=== PATIENT | male | born 1975 | race Caucasian/White ===

== ENCOUNTER 2018-04-30 09:43 | Emergency (ER) | payer SELFPAY ==
[~2018-04-30] VITALS: Ht 177.8 cm; Wt 81.6 kg
[2018-04-30 10:24] VITALS: BP 126/70
--- NOTE | 2018-04-30 10:40 | PHYS DOC ---
Past Medical History Past Medical History: No Pertinent History Past Surgical History: No Surgical History Alcohol Use: None Drug Use: None Adult General Chief Complaint Chief Complaint: UPPER EXTREMITY PAIN HPI HPI Patient presents to the emergency department for evaluation of left shoulder area pain. 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 He denies any definite or discrete injury. He denies any headache, or vision changes. Denies any lower extremity injury or definite neck pain. Movement and palpation of his left shoulder seemed to worsen his pain. There are no alleviating factors to his symptoms, except as noted above. The patient's symptoms have been present for several months. Review of Systems Review of Systems Constitutional: Denies fever or chills [] Eyes: Denies change in visual acuity, redness, or eye pain [] HENT: Denies nasal congestion or sore throat [] Respiratory: Denies cough or shortness of breath [] Cardiovascular: The patient denies any shortness of breath, chest pain, palpitations, or orthopnea [] GI: Denies abdominal pain, nausea, vomiting, bloody stools or diarrhea [] : Denies dysuria or hematuria [] Musculoskeletal: Denies back pain or joint pain except as noted in the history of present illness [] Integument: Denies rash or skin lesions [] Neurologic: Denies headache, focal weakness or sensory changes, except as noted in the history of present illness. [] Endocrine: Denies polyuria or polydipsia [] All other systems were reviewed and found to be within normal limits, except as documented in this note. Allergies Allergies Allergies Coded Allergies Type Severity Reaction Last Updated Verified No Known Drug Allergies 04/30/18 No Physical Exam Physical Exam PHYSICAL EXAM: CONSTITUTIONAL: Well developed, well nourished HEAD: normocephalic, atraumatic EENT: PERRL, EOMI. Conjunctivae normal color, sclerae non-icteric; moist mucous membranes. NECK: Supple, no meningismus. There is tenderness to palpation at the base of the cervical spine, which does not directly reproduce the patient's pain. LUNGS: Lungs CTA, breathing even and unlabored. Normal air movement. HEART: Regular rate and rhythm, no murmur CHEST: No deformity; non-tender ABDOMEN: The abdomen is soft, and non-tender, no masses or bruits. EXTREM: There is diffuse tenderness to palpation of the left shoulder, which does reproduce the patient's pain. There is no significant deformity noted, no warmth or erythema. Injure motion left shoulder is limited to approximately 70% and internal Rotation secondary to pain, and abduction is normal. There is a strong radial pulse. Normal ROM; no deformity, no calf tenderness. Normal pulses palpable in all extremities. There is no pedal edema. SKIN: No rash; no diaphoresis NEURO: Alert; normal speech and cognition; CN's grossly intact; there is mild childcare center administrator strength deficit of the left hand compared to the right, although the patient is able to fully flex and extend his digits. Strength grossly intact without focal deficit. There is subjective decreased pinprick sensation to the left upper extremity compared to the right. BACK: No CVA TTP. Current Patient Data Vital Signs Vital Signs Date Time Temp Pulse Resp B/P (MAP) Pulse Ox O2 Delivery O2 Flow Rate FiO2 04/30/18 10:24 97.6 80 16 126/70 (88) 100 Room Air 97.6 EKG EKG [] Radiology/Procedures Radiology/Procedures [PROCEDURE: CERVICAL SPINE 2-3V 3 view cervical spine dated 04/30/2018. No comparison available. Clinical data indication: Pain and decreased range of motion for 3 months. No known injury. FINDINGS: AP, lateral and odontoid views were obtained. Straightening of the normal cervical lordosis, otherwise sagittal alignment is anatomic. Vertebral body heights are maintained. Mild hypertrophic change of the superior and inferior endplates throughout. There is mild disc space narrowing at C6-C7 with mild multilevel uncovertebral spurring. C1-C2 articulation unremarkable. IMPRESSION: 1. No acute radiographic abnormality. 2. Mild multilevel spondylosis. ] PROCEDURE: SHOULDER 2+V LEFT Three-view left shoulder dated 04/30/2018. No comparison available. Clinical indication: Pain and decreased range of motion. FINDINGS: 3 views left shoulder show normal bony alignment. No displaced fracture. No acute osseous or articular abnormality. Mild hypertrophic change of the AC joint. IMPRESSION: No acute findings. Course & Med Decision Making Course & Med Decision Making Pertinent Imaging studies reviewed. (See chart for details) 11:50 AM: The patient's condition remains stable. I discussed the use of NSAIDs , heat applied to the affected area, limiting strenuous activity with the affected arm, and need for further outpatient evaluation by orthopedic surgery, and return precautions. The patient's pain is located primarily in his shoulder , raising the possibility that his symptoms are due to a rotator cuff issue. However, cervical radiculopathy is also the differential the patient would likely benefit from an MRI of both the shoulder and cervical spine as an outpatient.. This was discussed in detail with the patient. Dragon Disclaimer Dragon Disclaimer This electronic medical record was generated, in whole or in part, using a voice recognition dictation system. Departure Departure Impression: Primary Impression: Shoulder pain Disposition: 01 HOME, SELF-CARE Condition: STABLE Referrals: GENESIS MERLOS MD Patient Instructions: Cervical Radiculopathy, Rotator Cuff Injury, Shoulder Pain Additional Instructions: Symptoms or urinary having might be due to either a rotator cuff injury, or cervical radiculopathy, due to compression of nerve roots in the neck. Further outpatient evaluation by an economic development specialist, and possible MRI evaluation of her shoulder and neck is warranted. Please contact the orthopedic surgeon as instructed to arrange further outpatient evaluation. Limiting the amount of strenuous activity that you do with her arm may help improve your pain. Ibuprofen 400-600 mg every 6 hours may help improve your symptoms. Applying a heating pad to the affected area may help improve your symptoms. TIMOTHY HADDAD MD Apr 30, 2018 10:40
--- NOTE | 2018-04-30 11:43 | RAD ---
Three-view left shoulder dated 04/30/2018. No comparison available. Clinical indication: Pain and decreased range of motion. FINDINGS: 3 views left shoulder show normal bony alignment. No displaced fracture. No acute osseous or articular abnormality. Mild hypertrophic change of the AC joint. IMPRESSION: No acute findings. Electronically signed by: Ziyad Chang MD (04/30/2018 11:40 AM) [id number]
--- NOTE | 2018-04-30 11:45 | RAD ---
3 view cervical spine dated 04/30/2018. No comparison available. Clinical data indication: Pain and decreased range of motion for 3 months. No known injury. FINDINGS: AP, lateral and odontoid views were obtained. Straightening of the normal cervical lordosis, otherwise sagittal alignment is anatomic. Vertebral body heights are maintained. Mild hypertrophic change of the superior and inferior endplates throughout. There is mild disc space narrowing at C6-C7 with mild multilevel uncovertebral spurring. C1-C2 articulation unremarkable. IMPRESSION: 1. No acute radiographic abnormality. 2. Mild multilevel spondylosis. Electronically signed by: Ziyad Chang MD (04/30/2018 11:41 AM) [id number]
== END 2018-04-30 12:04 | disposition home or self-care (01) ==
LOC: ER 09:43
DX: M25.512 Pain in left shoulder (principal)
CPT/HCPCS: 72040; 73030; 99284